=== PATIENT | female | born 1955 | race Hispanic/Latino ===

== ENCOUNTER 2025-03-20 06:29 | Day surgery (SDC) | payer OTHER ==
[2025-03-20] VITALS (12 sets, daily range): BP systolic 128–199; BP diastolic 55–77; PULSE 56–73; RESP 16–20; TEMP 96.9–98.1
[~2025-03-20] VITALS: Ht 157.5 cm; Wt 68.0 kg
[2025-03-20] MEDS ORDERED: AMLO-258 PO (06:50)
[2025-03-20] MEDS ORDERED: METF-444 PO (06:50)
[2025-03-20] MEDS ORDERED: SUCR1TAB2 PO (06:50)
[2025-03-20] MEDS: 0.9%NACL 1000ML 1,000 ML IV ONE (06:52)
[2025-03-20] MEDS ORDERED: MIDAZOLAM HCL 1 MG/ML 2ML VIAL ONE (07:39)
--- NOTE | 2025-03-20 07:42 | NUR ---
PATIENT STATES VERY ANXIOUS, B/P 199/77, P 60. MAGY NEGRETE CRNA NOTIFIED AND VERSED 1MG GIVEN IVP.
--- NOTE | 2025-03-20 09:10 | NUR ---
urinary: incontinent of urine, voided some in toilet without difficulty. cleansed and changed patient
== END 2025-03-20 09:50 | disposition home or self-care (01) ==
LOC: ENDO 06:29 → DAH 06:29 → ENDO 09:50
PROVIDERS: ATTEND Internal Medicine
DX: R93.2 Abnormal findings on diagnostic imaging of liver and biliary tract (principal); K29.50 Unspecified chronic gastritis without bleeding; K83.8 Other specified diseases of biliary tract; I10 Essential (primary) hypertension; E11.9 Type 2 diabetes mellitus without complications; Z79.899 Other long term (current) drug therapy
CPT/HCPCS: 43259; 43239; J7030 ×2; J3490; J2250; J2704; J2371; A4620; A7002; A4335 ×2